=== PATIENT | female | born 1965 | race Caucasian/White ===

== ENCOUNTER → 2018-03-19 15:40 | Outpatient (CLI) | payer OTHER, SELFPAY ==
[2018-03-19 16:25] LABS: Erythrocyte Sedimentation Rate 11 mm/hr (0-30)
== END ==
PROVIDERS: Family Provider Family Medicine; PCP Family Medicine; Referring Provider Psychiatry & Neurology Neurology; Visit Provider Psychiatry & Neurology Neurology
DX: R51 Headache (principal)
CPT/HCPCS: 36415; 85652

== ENCOUNTER → 2021-11-27 | Outpatient (CLI) | payer OTHER, SELFPAY | END | disposition home or self-care (01) | LOC: LABSPEC 16:52 | PROVIDERS: Referring Provider Urology; Visit Provider Urology | DX: R31.21 Asymptomatic microscopic hematuria (principal) | CPT/HCPCS: 87086; 87088 ==

== ENCOUNTER → 2021-12-24 | Outpatient (CLI) | payer OTHER, SELFPAY ==
--- NOTE | 2021-12-24 16:07 | CYSPIN_PTH ---
PATIENT: HEMAL JENKINS [facility] U[facility][id number] AGE/SX: 56/F ROOM: RE12/24/[address]: Dr. Robby Bolton MD : 1965 BED: DIS: 12/24/2021 SPEC #: [id number] RECD: 12/25/21 08:46 STATUS: CLAUDIA REReji #: [id number] KAYLAH: 12/24/21 16:[address]: Robby Bolton DEPT: CYTOLOGY RECD BY: Kacy Vazquez ENTERED: 12/25/21 08:46 SP TYPE: CYSPIN FL OTHR DR: No Primary Care Phys Tissues: Urine Procedures: Pap Stain (control) Special Stain Group II Cytospin Fluid HEADER OPERATION: Not noted PRE-OP DIAGNOSIS: Hematuria TISSUE SUBMITTED: Urine for cytology DIAGNOSIS CYTOLOGY Urine for cytology (cytospin): Atypical urothelial cells (Tiesha System Category III). AM:maldonado 12/25/2021 COMMENT The Tiesha System for urine cytology diagnostic categorization was used in the evaluation of this case. CYTOLOGY STUDY Slides are reviewed. CYTOLOGY GROSS Received is 70 ml of yellow cloudy fluid labeled with the patient's name and and designated per the requisition as urine. Submitted for cytology preparation. / maldonado 12/24/2021 TC:? CPT: 16388
[2021-12-24 16:58] LABS: Cytology, Body Fluid / CSF SEE PATHOLOGY REPORT
== END | disposition home or self-care (01) ==
LOC: LABSPEC 16:39
PROVIDERS: Visit Provider Urology
DX: R31.9 Hematuria, unspecified (principal)
CPT/HCPCS: 88108; 88313

== ENCOUNTER → 2022-05-02 | Outpatient (CLI) | payer OTHER, SELFPAY ==
--- NOTE | 2022-05-02 | CYSPIN_PTH ---
PATIENT: HEMAL JENKINS [facility] U[facility][id number] AGE/SX: 57/F ROOM: RE05/02/[address]: Dr. Robby Bolton MD : 1965 BED: DIS: 05/02/2022 SPEC #: [id number] RECD: 05/03/22 09:35 STATUS: CLAUDIA REReji #: [id number] KAYLAH: 05/02/22 00:[address]: Robby Bolton DEPT: CYTOLOGY RECD BY: Bravo Colin ENTERED: 05/03/22 09:35 SP TYPE: CYSPIN FL OTHR DR: No Primary Care Phys Tissues: Urine Procedures: Pap Stain (control) Special Stain Group II Cytospin Fluid HEADER OPERATION: Not noted PRE-OP DIAGNOSIS: Hematuria TISSUE SUBMITTED: Urine for cytology DIAGNOSIS CYTOLOGY Urine for cytology (cytospin): Negative for high-grade urothelial carcinoma (IDGUC), Tiesha System Category II. Acute inflammation. See comment. SJ:maldonado 05/03/2022 COMMENT Clinical correlation and appropriate follow up are necessary. The Tiesha System for urine cytology diagnostic categorization was used in the evaluation of this case. Please make reference to previous specimen ([id number]) urine for cytology with diagnosis of ?atypical urothelial cells. CYTOLOGY STUDY Slides are reviewed. CYTOLOGY GROSS Received is 20 ml of yellow cloudy fluid labeled with the patient's name and and designated per the requisition as urine. Submitted for cytology preparation. / maldonado 05/02/2022 TC:2 CPT: 64634
[2022-05-02 17:56] LABS: Cytology, Body Fluid / CSF SEE PATHOLOGY REPORT
== END | disposition home or self-care (01) ==
PROVIDERS: Visit Provider Urology
DX: R31.9 Hematuria, unspecified (principal)
CPT/HCPCS: 88108; 88313